=== PATIENT | female | born 1950 | race African-American/Black ===

== ENCOUNTER 2016-12-07 10:47 | Inpatient (IN) | payer OTHER ==
[~2016-12-07] VITALS: Ht 160 cm; Wt 99.7 kg
[~2016-12-07 10:47] MED LIST: ACCOLATE20 MG PO; ACETAMINOPHEN325 M1 PO; ADVAIR; ADVAIR 250/501 DISK IH; ADVAIR 500/501 DISK IH; ALBUTEROL SULF8.5 GM IH; ALBUTEROL2.5 MG/3 M IH; ALENDRONATE SOD10 MG PO; ALLEGRA180 MG PO; ALLOPURINOL100 MG PO; AMANTADINE100 M1 PO; APAP325 MG PO; ATIVAN2 MG/ML IV; ATROVENT 00.5 MG/2.5 IH; AUGMENTIN875 MG PO; BACTRIM,SEPTRA20 ML PO; BISAC-EVAC10 MG PR; BISACODYL SUPP10 MG RC; CALCIUM 500 +1 EAC1 PO; CALCIUM 500 +1 EAC4 PO; CALCIUM 600 +1 EAC7 GT; CARDIZEM CD240 MG PO; CEFEPIME HCL2 GM IM; CHLORASEPTIC S180 ML MM; CHRONULAC,CEPHU30 ML; CLARITIN10 M3; CLARITIN10 M3 PO; COLACE100 MG PO; CONSTULOSE10 GM/15 M PO; COREG3.125 MG PO; COUMADIN PO; COUMADIN,JANTO2.5 MG PO; CYTOTEC200 MCG PO; Chloraseptic Spray C MM; Colace PO; Combivent IH; Coreg PO; Coumadin,Jantoven PO; Cytotec PO; DELTASONE20 M1 PO; DELTASONE5 MG PO; DEXTROSE 50%50 ML IV; DIAZEPAM5 MG PO; DIFLUCAN200 MG/101 IV; DILAUDID1 MG/ML IV; DILAUDID4 MG PO; DULCOLAX10 MG PR; DUONEB 2.5-0.5 M3 ML IH; DUONEB3 ML IH; DURAGESIC12 MICROGR TD; Dulcolax PR; DuoNeb IH; EFFEXOR XR75 MG PO; ENULOSE10 GM/15 M PO; ERGOCALCIF50000 UNI1 PO; FENTANYL1 EAC1 TD; FLEET ENEMA-AD118 ML PR; FLONASE16 G1 BOTH NARES; FLORASTOR250 MG PO; FLORINEF ACETA0.1 MG PO; FLUDROCORTISON0.1 M1 PO; FLUDROCORTISON0.1 MG PO; FONDAPARIN2.5 MG/0.5 SC; FOSAMAX35 MG PO; FOSAMAX70 M1 GT; FUROSEMIDE20 MG PO; GABAPENTIN300 MG PO; GLUCAGEN1 MG IM/SC; GUAIFENESIN400 MG PO; HYDROCHLOROTHIA25 MG PO; HYDROCODONE-AP1 EAC6 PO; Heparin Sodium SC; IBUPROFEN600 MG PO; IMDUR30 MG PO; IMODIUM2 MG PO; IPRATR-ALBUTEROL3 ML; IPRATR-ALBUTEROL3 ML IH; K-DUR20 MEQ PO; K-Dur PO; KEFLEX250 MG PO; KEFLEX500 MG PO; KLOR-CON M2020 MEQ PO; LACTULOSE10 GM/151 PO; LASIX20 MG PO; LASIX40 MG PO; LASIX80 MG PO; LEVAQUIN500 MG PO; LEVAQUIN750 MG PO; LOPRESSOR50 MG PO; LOVENOX40 MG/0.4 PO; LOVENOX40 MG/0.4 SC; LYRICA50 MG PO; Lantus 3 ml Solostar SC; Lopressor GT; Lovenox SC; MAG DELAY64 M1 PO; MAG-OX400 M1 PO; MEGACE400 MG/10 PO; MEROPENEM500 MG IV; METOPROLOL TART25 MG PO; MIRALAX17 GM PO; MISOPROSTOL200 MCG PO; MITRAZOL POWDER30 GM TP; MONTELUKAST SOD10 MG PO; MUCINEX600 MG PO; MULTIPLE VITAM1 EACH PO; MULTIVITAMIN1 EAC1 PO; MULTIVITAMIN1 EAC2 PO; MYLICON,MYLANTA80 MG PO; MYSOLINE50 M1 PO; MYSOLINE50 MG PO; Mag-Ox GT; NEURONTIN100 MG PO; NEUTRA-PHOS,1 PACKET PO; NIACIN100 MG PO; NITROSTAT,NITR0.4 M1 SL; NOVOLOG PE100 UNITS/ SC; NOVOLOG100 UNIT/3 SQ; Norco 5/325 PO; Normal Saline,NaCl 0 IV; OMEPRAZOLE20 M3 PO; OMEPRAZOLE20 MG PO; OMEPRAZOLE40 M1 PO; OXYCODONE5 MG PO; OXYCONTIN20 MG PO; PERCOCET 5-3251 EACH PO; POTASSIUM CHLORIDE PO; PREDNISONE PO; PREDNISONE10 MG PO; PREDNISONE5 M2 PO; PREDNISONE5 MG PO; PREVACID SOLUTA30 MG GT; PRILOSEC20 MG PO; PRIMIDONE50 MG PO; PROBIOTIC1 EAC1 PO; PROMETHAZINE HC25 M1 PO; PROVENTIL,2.5 MG/3 M IH; Protonix IV; Protonix PO; Questran PO; REGLAN5 MG PO; RITALIN10 MG PO; RITALIN20 MG PO; ROBITUSSIN LON118 ML PO; Remove Lidoderm Patc TD; Rocephin IM; SALINE FLUSH 5 M5 ML IV; SENNA PLUS TAB1 EACH PO; SENNA S TABLET1 EACH PO; SEROQUEL50 MG PO; SIMETHICONE80 MG PO; SIMVASTATIN40 M1 PO; SINGULAIR10 MG PO; SKELAXIN800 MG PO; SPIRIVA RESPIMAT4 G1 IH; SPIRIVA1 INHALATI IH; THEOCHRON200 MG PO; THERAGRAN1 TABLET PO; TPN; TRAMADOL HCL50 MG PO; TYLENOL EXTRA500 MG PO; TYLENOL REGULA325 MG PO; TYLENOL650 MG PR; TYLENOL650 MG/20. GT; Tums,OsCal PO; ULTRAM50 MG PO; URECHOLINE10 M1 PO; Ultram PO; VANCOMYCIN1500 MG/25 IV; VENTOLIN17 GM IH; VITAMIN D1000 INTUN PO; VITAMIN D5000 INTUN; VITAMIN D50000 UNI1 PO; VITAMIN D50000 UNI2 PO; WELLBUTRIN75 MG PO; XIFAXAN200 MG PO; Xifaxan PO; ZANTAC IV; ZESTRIL,PRINIVI40 M1 PO; ZITHROMAX250 MG PO; ZOCOR40 MG PO; ZOFRAN4 MG/2 ML IV; ZOLOFT100 MG PO; ZOLOFT20 MG/ML GT; ZOSYN2.25 GM/50 IV; ZOSYN3.375 GM/5 IV; Zestril,Prinivil GT; [UNRECOGNIZED DRUG - CODE] TD; [UNRECOGNIZED DRUG - OTHER]; [UNRECOGNIZED DRUG - OTHER] PO
[2016-12-07 12:25] LABS: ADD MIUA? YES; BILIRUBIN NEGATIVE; BLOOD SMALL; COLOR AMBER ((YELLOW)); GLUCOSE (STRIP) NEGATIVE; KETONES 5; LEUKOCYTES LARGE; NITRITE NEGATIVE; PROTEIN (STRIP) 30; SPECIFIC GRAVITY 1.017 (1.000-1.030)
[2016-12-07 12:43] LABS: EOSINOPHIL (%) 0.2 % (0-5); HEMATOCRIT 34.5 % (36.0-46.0); IMMATURE GRANULOCYTE (%) 3.3 % (0.0-0.7); IMMATURE GRANULOCYTE COUNT 0.4 K/uL; INSTRUMENT ABS NEUTROPHIL CT 10.2 K/uL; LYMPHOCYTE COUNT 1.8 K/uL (1.0-2.8); MCH 28.7 PG (29.0-34.0); MCHC 35.1 G/DL (30.0-36.0); MCV 81.8 FL (83-99); MEAN PLAT.VOLUME 10.8 uM^3 (9.5-12.4); MONOCYTE (%) 6.8 % (3-12); MONOCYTE COUNT 0.9 K/uL (0-0.8); NEUTROPHIL (%) 75.8 % (45-76); NEUTROPHIL COUNT 10.2 K/uL (1.8-6.4); PLATELET COUNT 308 K/uL (156-360); RBC DIS.WIDTH-CV 15.3 % (11.8-14.6); RBC DIS.WIDTH-SD 43.9 % (39-53); RED BLOOD COUNT 4.22 M/uL (3.80-5.20); WHITE BLOOD COUNT 13.5 K/uL (4.1-10.2)
[2016-12-07 12:57] LABS: RED BLOOD CELLS 0-5 /HPF (0-5)
[2016-12-07 12:58] LABS: BACTERIA 3+ /HPF; EPITHELIAL CELLS 2+ /HPF; MUCUS 1+ /LPF; UCUL ADDED? YES
[2016-12-07 13:00] LABS: OTHER YEAST W/HYPHAE 1+
[2016-12-07 13:25] LABS: CHLORIDE 99 mEq/L (99-109); POTASSIUM 3.4 mEq/L (3.7-5.4); SODIUM 132 mEq/L (136-147)
[2016-12-07 13:27] LABS: GLUCOSE 113 mg/dL (70-99)
[2016-12-07 13:28] LABS: ANION GAP 12 MEQ/L (2-14)
[2016-12-07 13:31] LABS: GFR ESTIMATE (CALCULATED) > 59 mL/min/
[2016-12-07 13:32] LABS: UREA NITROGEN (BUN) 23 mg/dL (9-23)
[2016-12-07 13:39] LABS: TROP-I INTERPRETATION NEGATIVE; TROPONIN-I 0.05 ng/mL (0.0-0.30)
[2016-12-07] MEDS ORDERED: LASIX40 MG PO (13:47)
[2016-12-07] MEDS ORDERED: ERGOCALCIF50000 UNIT PO (13:50)
[2016-12-07] MEDS ORDERED: BUDESONIDE0.5 MG/2 M IH (13:51)
[2016-12-07] MEDS ORDERED: MUCINEX600 MG PO (13:51)
[2016-12-07] MEDS ORDERED: PROBIOTIC1 EAC6 PO (13:52)
[2016-12-07] MEDS ORDERED: SENNA8.6 MG PO (13:53)
[2016-12-07] MEDS ORDERED: TYLENOL EXTRA500 MG PO (13:53)
[2016-12-07] MEDS ORDERED: GABAPENTIN100 MG PO (13:54)
[2016-12-07] MEDS ORDERED: KEFLEX500 MG PO (13:56)
[2016-12-07 14:02] LABS: INTER. NORMALIZED RATIO 1.7; PROTHROMBIN TIME 17.1 (9.2-11.2); PTT 24.9 (25-32)
[2016-12-07] MEDS ORDERED: LEVAQUIN500 MG PO (14:08)
[2016-12-07 22:52] VITALS: BP 121/66
[2016-12-08 03:52] VITALS: BP 133/69
[2016-12-08 06:58] LABS: POINT-OF-CARE METER ID UU14162508
[2016-12-08 07:29] LABS: ALKALINE PHOSPHATASE 78 IU/L (3-129); ANION GAP 10 MEQ/L (2-14); CHLORIDE 101 MEQ/L (99-109); GFR ESTIMATE (CALCULATED) > 59 mL/min/; POTASSIUM 3.1 MEQ/L (3.7-5.4); SAMPLE HEMOLYSIS CHECK 0; SAMPLE ICTERIC CHECK 0; SAMPLE LIPEMIA CHECK 0; SODIUM 137 MEQ/L (136-147); TOTAL BILIRUBIN 0.6 MG/DL (0.0-1.0); UREA NITROGEN (BUN) 19 mg/dL (9-23)
[2016-12-08 07:33] LABS: GLUCOSE 74 mg/dL (70-99)
[2016-12-08 07:48] LABS: MCH 28.2 PG (29.0-34.0); MCHC 33.9 G/DL (30.0-36.0); MCV 83.3 FL (83-99); RBC DIS.WIDTH-CV 15.9 % (11.8-14.6); RBC DIS.WIDTH-SD 46.4 % (39-53); RED BLOOD COUNT 3.72 M/uL (3.80-5.20); WHITE BLOOD COUNT 12.4 K/uL (4.1-10.2)
[2016-12-08 09:08] LABS: MEAN PLAT.VOLUME 11.4 uM^3 (9.5-12.4); PLAT.SUFFICIENCY ADEQUATE; PLATELET COUNT 210 K/uL (156-360)
[2016-12-08 09:19] LABS: INTER. NORMALIZED RATIO 1.7; PROTHROMBIN TIME 17.4 (9.2-11.2)
[2016-12-08 12:00] VITALS: BP 124/79
[2016-12-08 22:07] VITALS: BP 90/60
[2016-12-08 23:34] VITALS: BP 104/56
[2016-12-09 03:48] VITALS: BP 127/67
[2016-12-09 06:48] LABS: RED BLOOD COUNT 3.48 M/uL (3.80-5.20)
[2016-12-09 06:49] LABS: HEMATOCRIT 28.6 % (36.0-46.0); MCH 28.7 PG (29.0-34.0); MCV 82.2 FL (83-99); RBC DIS.WIDTH-CV 15.9 % (11.8-14.6); RBC DIS.WIDTH-SD 46.4 % (39-53)
[2016-12-09 06:59] LABS: INTER. NORMALIZED RATIO 1.8; PROTHROMBIN TIME 18.5 (9.2-11.2)
[2016-12-09 07:00] VITALS: BP 114/60
[2016-12-09 07:12] LABS: ANION GAP 8 MEQ/L (2-14); CHLORIDE 101 MEQ/L (99-109); GFR ESTIMATE (CALCULATED) > 59 mL/min/; GLUCOSE 82 mg/dL (70-99); POTASSIUM 3.2 MEQ/L (3.7-5.4); SAMPLE HEMOLYSIS CHECK 0; SAMPLE ICTERIC CHECK 0; SAMPLE LIPEMIA CHECK 0; SODIUM 134 MEQ/L (136-147); UREA NITROGEN (BUN) 16 mg/dL (9-23)
[2016-12-09 07:41] LABS: MEAN PLAT.VOLUME 10.3 uM^3 (9.5-12.4); PLAT.SUFFICIENCY ADEQUATE; PLATELET COUNT 247 K/uL (156-360)
[2016-12-09 08:26] LABS: MAGNESIUM 1.3 mg/dl (1.3-2.7)
[2016-12-09 12:00] VITALS: BP 120/62
[2016-12-09 16:23] VITALS: BP 116/68
[2016-12-09 19:12] VITALS: BP 112/59
[2016-12-09 20:10] VITALS: BP 94/50
[2016-12-10] VITALS (7 sets, daily range): BP systolic 95–133; BP diastolic 53–76
[2016-12-10 08:54] LABS: INTER. NORMALIZED RATIO 1.7; PROTHROMBIN TIME 17.7 (9.2-11.2); PTT 26.4 (25-32)
[2016-12-10 09:11] LABS: ANION GAP 11 MEQ/L (2-14); CHLORIDE 101 MEQ/L (99-109); GFR ESTIMATE (CALCULATED) > 59 mL/min/; GLUCOSE 94 mg/dL (70-99); POTASSIUM 3.6 MEQ/L (3.7-5.4); SAMPLE HEMOLYSIS CHECK 0; SAMPLE ICTERIC CHECK 0; SAMPLE LIPEMIA CHECK 0; SODIUM 131 MEQ/L (136-147); UREA NITROGEN (BUN) 13 mg/dL (9-23)
[2016-12-10 09:17] LABS: 6-HOUR TOBRAMYCIN 6.2 UG/ML; MAGNESIUM 2.1 mg/dl (1.3-2.7)
[2016-12-10 09:45] LABS: HEMATOCRIT 29.2 % (36.0-46.0); MCHC 35.3 G/DL (30.0-36.0); MCV 82.3 FL (83-99); MEAN PLAT.VOLUME 11.1 uM^3 (9.5-12.4); PLATELET COUNT 232 K/uL (156-360); RBC DIS.WIDTH-CV 15.9 % (11.8-14.6); RBC DIS.WIDTH-SD 46.7 % (39-53); RED BLOOD COUNT 3.55 M/uL (3.80-5.20); WHITE BLOOD COUNT 13.9 K/uL (4.1-10.2)
[2016-12-10 21:32] LABS: POINT-OF-CARE METER ID UU14162508
[2016-12-11 03:15] VITALS: BP 129/68
[2016-12-11 06:30] LABS: POINT-OF-CARE METER ID UU14162508
[2016-12-11 07:03] LABS: HEMATOCRIT 30.1 % (36.0-46.0); MCH 28.9 PG (29.0-34.0); MCHC 35.5 G/DL (30.0-36.0); MCV 81.4 FL (83-99); MEAN PLAT.VOLUME 10.7 uM^3 (9.5-12.4); NRBC (%) 0.2 /100 WBC (0-0); PLATELET COUNT 273 K/uL (156-360); RBC DIS.WIDTH-CV 16.1 % (11.8-14.6); RBC DIS.WIDTH-SD 45.8 % (39-53); WHITE BLOOD COUNT 13.1 K/uL (4.1-10.2)
[2016-12-11 07:11] LABS: INTER. NORMALIZED RATIO 1.7; PROTHROMBIN TIME 17.1 (9.2-11.2); PTT 23.1 (25-32)
[2016-12-11 08:03] LABS: CHLORIDE 102 mEq/L (99-109); POTASSIUM 3.8 mEq/L (3.7-5.4); SODIUM 133 mEq/L (136-147)
[2016-12-11 08:04] LABS: MAGNESIUM 1.8 mg/dL (1.3-2.7)
[2016-12-11 08:05] LABS: GLUCOSE 96 mg/dL (70-99)
[2016-12-11 08:07] LABS: ANION GAP 11 MEQ/L (2-14)
[2016-12-11 08:09] LABS: GFR ESTIMATE (CALCULATED) > 59 mL/min/
[2016-12-11 08:10] LABS: UREA NITROGEN (BUN) 15 mg/dL (9-23)
[2016-12-11 08:22] VITALS: BP 102/62
[2016-12-11 11:14] VITALS: BP 119/52
[2016-12-11 16:19] VITALS: BP 130/66
[2016-12-11 20:30] VITALS: BP 110/60
[2016-12-11 23:03] VITALS: BP 123/69
[2016-12-12 04:22] VITALS: BP 119/60
[2016-12-12 07:00] VITALS: BP 109/55
[2016-12-12 08:22] LABS: HEMATOCRIT 29.2 % (36.0-46.0); MCH 28.9 PG (29.0-34.0); MCHC 35.3 G/DL (30.0-36.0); RBC DIS.WIDTH-CV 16.2 % (11.8-14.6); RBC DIS.WIDTH-SD 47.2 % (39-53); RED BLOOD COUNT 3.56 M/uL (3.80-5.20)
[2016-12-12 08:50] LABS: MEAN PLAT.VOLUME 10.2 uM^3 (9.5-12.4); PLAT.SUFFICIENCY ADEQUATE; PLATELET COUNT 247 K/uL (156-360)
[2016-12-12 08:51] LABS: ANION GAP 10 MEQ/L (2-14); CHLORIDE 102 MEQ/L (99-109); GFR ESTIMATE (CALCULATED) > 59 mL/min/; GLUCOSE 91 mg/dL (70-99); POTASSIUM 3.6 MEQ/L (3.7-5.4); SAMPLE HEMOLYSIS CHECK 0; SAMPLE ICTERIC CHECK 0; SAMPLE LIPEMIA CHECK 0; SODIUM 135 MEQ/L (136-147); UREA NITROGEN (BUN) 18 mg/dL (9-23)
[2016-12-12 11:35] VITALS: BP 108/56
[2016-12-12 15:25] VITALS: BP 111/57
[2016-12-12 19:45] VITALS: BP 123/60
[2016-12-12 23:16] VITALS: BP 122/63
[2016-12-13 03:33] VITALS: BP 129/69
[2016-12-13 06:20] LABS: MCH 29.2 PG (29.0-34.0); MCHC 35.9 G/DL (30.0-36.0); MCV 81.5 FL (83-99); MEAN PLAT.VOLUME 10.5 uM^3 (9.5-12.4); NRBC (%) 0.3 /100 WBC (0-0); PLATELET COUNT 269 K/uL (156-360); RBC DIS.WIDTH-SD 46.7 % (39-53); RED BLOOD COUNT 3.56 M/uL (3.80-5.20); WHITE BLOOD COUNT 11.8 K/uL (4.1-10.2)
[2016-12-13 06:38] LABS: ANION GAP 9 MEQ/L (2-14); CHLORIDE 104 MEQ/L (99-109); GFR ESTIMATE (CALCULATED) > 59 mL/min/; GLUCOSE 106 mg/dL (70-99); SAMPLE HEMOLYSIS CHECK 0; SAMPLE ICTERIC CHECK 0; SAMPLE LIPEMIA CHECK 0; SODIUM 137 MEQ/L (136-147); UREA NITROGEN (BUN) 20 mg/dL (9-23)
[2016-12-13 06:45] LABS: POTASSIUM 4.4 MEQ/L (3.7-5.4)
[2016-12-13 07:15] VITALS: BP 128/68
[2016-12-13 12:19] VITALS: BP 124/66
[2016-12-13 15:49] VITALS: BP 134/70
[2016-12-13 18:36] VITALS: BP 117/72
[2016-12-14 00:07] VITALS: BP 122/52
[2016-12-14 04:05] VITALS: BP 120/60
[2016-12-14 06:45] VITALS: BP 130/58
[2016-12-14 07:09] LABS: HEMATOCRIT 29.2 % (36.0-46.0); MCH 28.9 PG (29.0-34.0); MCHC 35.3 G/DL (30.0-36.0); MCV 81.8 FL (83-99); MEAN PLAT.VOLUME 10.9 uM^3 (9.5-12.4); NRBC (%) 0.2 /100 WBC (0-0); PLATELET COUNT 250 K/uL (156-360); RBC DIS.WIDTH-CV 16.5 % (11.8-14.6); RBC DIS.WIDTH-SD 47.7 % (39-53); RED BLOOD COUNT 3.57 M/uL (3.80-5.20)
[2016-12-14 07:39] LABS: ANION GAP 9 MEQ/L (2-14); CHLORIDE 106 MEQ/L (99-109); GFR ESTIMATE (CALCULATED) > 59 mL/min/; GLUCOSE 74 mg/dL (70-99); SAMPLE HEMOLYSIS CHECK 0; SAMPLE ICTERIC CHECK 0; SAMPLE LIPEMIA CHECK 0; SODIUM 138 MEQ/L (136-147); UREA NITROGEN (BUN) 21 mg/dL (9-23)
[2016-12-14] MEDS ORDERED: NEBCIN40 MG/ML IV ×3 (08:18→10:06)
[2016-12-14] MEDS ORDERED: FLUCONAZOLE100 MG PO (08:18)
[2016-12-14 12:20] VITALS: BP 132/60
== END 2016-12-14 14:20 | DRG 871 ==
LOC: EME → EDBD 10:47 → EDOF 20:40 → 2EAST 20:40 → EDOF 20:52 → 2EAST 22:42
PROVIDERS: Emergency Medicine; Family Medicine; Hospitalist; Internal Medicine; Nurse Practitioner Family; Student in an Organized Health Care Education/Training Program
DX: A41.9 Sepsis, unspecified organism (principal); J18.9 Pneumonia, unspecified organism; E87.1 Hypo-osmolality and hyponatremia; N39.0 Urinary tract infection, site not specified; E66.01 Morbid (severe) obesity due to excess calories; D68.9 Coagulation defect, unspecified; E11.22 Type 2 diabetes mellitus with diabetic chronic kidney disease; Z99.81 Dependence on supplemental oxygen; Z68.38 Body mass index [BMI] 38.0-38.9, adult; D72.829 Elevated white blood cell count, unspecified; K52.9 Noninfective gastroenteritis and colitis, unspecified; E87.6 Hypokalemia; J44.9 Chronic obstructive pulmonary disease, unspecified; B96.20 Unspecified Escherichia coli [E. coli] as the cause of diseases classified elsewhere; R91.1 Solitary pulmonary nodule; B95.8 Unspecified staphylococcus as the cause of diseases classified elsewhere; E78.5 Hyperlipidemia, unspecified; I12.9 Hypertensive chronic kidney disease with stage 1 through stage 4 chronic kidney disease, or unspecified chronic kidney disease; N18.9 Chronic kidney disease, unspecified; M81.0 Age-related osteoporosis without current pathological fracture; R25.1 Tremor, unspecified; M10.9 Gout, unspecified; R32 Unspecified urinary incontinence; R62.7 Adult failure to thrive; K76.0 Fatty (change of) liver, not elsewhere classified; M48.00 Spinal stenosis, site unspecified; Z99.3 Dependence on wheelchair; Z90.49 Acquired absence of other specified parts of digestive tract; Z86.73 Personal history of transient ischemic attack (TIA), and cerebral infarction without residual deficits
CPT/HCPCS: 71010; 71260; 74020; 74177; 74230; 80048; 80053; 80200; 81003; 82948; 83605; 83735; 83880; 84484; 85025; 85027; 85610; 85730; 87040; 87077; 87086; 87186; 87449; 87801; 92610 GN; 92611 GN; 93005; 94640; 94640 76; 94667; 94668; 94760; 94799; 99202; 99281; 99285; J0692; J0696; J1650; J1956; J2405; J2930; J3260; J3475; J7030; J7040; J7050; J7512; S0030

== ENCOUNTER 2016-12-31 11:51 | Inpatient (IN) | payer OTHER ==
[2016-12-31] VITALS (15 sets, daily range): BP systolic 77–146; BP diastolic 52–97
[~2016-12-31] VITALS: Ht 170.2 cm; Wt 126.5 kg
[~2016-12-31 11:51] MED LIST changes: +BUDESONIDE0.5 MG/2 M IH; +ERGOCALCIF50000 UNIT PO; +FLUCONAZOLE100 MG PO; +GABAPENTIN100 MG PO; +NEBCIN40 MG/ML IV; +PROBIOTIC1 EAC6 PO; +SENNA8.6 MG PO
[2016-12-31 12:53] LABS: EOSINOPHIL (%) 0.5 % (0-5); HEMATOCRIT 26.8 % (36.0-46.0); IMMATURE GRANULOCYTE (%) 2.6 % (0.0-0.7); IMMATURE GRANULOCYTE COUNT 0.2 K/uL; INSTRUMENT ABS NEUTROPHIL CT 5.5 K/uL; LYMPHOCYTE COUNT 1.6 K/uL (1.0-2.8); MCH 28.8 PG (29.0-34.0); MCHC 35.4 G/DL (30.0-36.0); MCV 81.2 FL (83-99); MONOCYTE (%) 8.1 % (3-12); MONOCYTE COUNT 0.6 K/uL (0-0.8); NEUTROPHIL (%) 68.7 % (45-76); NEUTROPHIL COUNT 5.5 K/uL (1.8-6.4); PLATELET COUNT 310 K/uL (156-360); RBC DIS.WIDTH-CV 16.3 % (11.8-14.6); RBC DIS.WIDTH-SD 47.3 % (39-53)
[2016-12-31 14:03] LABS: ADD MIUA? YES; BILIRUBIN NEGATIVE; BLOOD NEGATIVE; COLOR YELLOW ((YELLOW)); GLUCOSE (STRIP) NEGATIVE; KETONES NEGATIVE; LEUKOCYTES NEGATIVE; NITRITE NEGATIVE; PROTEIN (STRIP) NEGATIVE; SPECIFIC GRAVITY 1.016 (1.000-1.030); UROBILINOGEN 0.2 MG/DL (0.2-1.0)
[2016-12-31] MEDS ORDERED: MULTIPLE VITAM1 EACH PO (14:14)
[2016-12-31 14:16] LABS: CHLORIDE 106 mEq/L (99-109); POTASSIUM 3.5 mEq/L (3.7-5.4); SODIUM 136 mEq/L (136-147)
[2016-12-31] MEDS ORDERED: POTASSIUM20 MEQ/11 PO (14:16)
[2016-12-31 14:19] LABS: GLUCOSE 113 mg/dL (70-99)
[2016-12-31 14:20] LABS: ANION GAP 9 MEQ/L (2-14)
[2016-12-31 14:21] LABS: TOTAL BILIRUBIN 0.8 mg/dL (0.0-1.0)
[2016-12-31 14:21] LABS: BACTERIA 2+ /HPF; EPITHELIAL CELLS 1+ /HPF; MUCUS NONE SEEN /LPF; RED BLOOD CELLS NONE SEEN /HPF (0-5); UCUL ADDED? NO; WHITE BLOOD CELLS 0-5 /HPF (0-5)
[2016-12-31 14:22] LABS: ALKALINE PHOSPHATASE 115 IU/L (3-129); GFR ESTIMATE (CALCULATED) 58 mL/min/
[2016-12-31 14:23] LABS: UREA NITROGEN (BUN) 35 mg/dL (9-23)
[2016-12-31 14:30] LABS: TROP-I INTERPRETATION NEGATIVE; TROPONIN-I < 0.01 ng/mL (0.0-0.30)
[2016-12-31 18:24] LABS: METH RESISTANT S AUREUS PCR POSITIVE (NEGATIVE)
[2016-12-31 18:27] LABS: PROBE CHECK PASS
[2016-12-31 21:01] LABS: MAGNESIUM 1.3 mg/dL (1.3-2.7)
[2016-12-31 23:08] LABS: UR CREATININE CONCENTRATION 103.8 MG/DL
[2017-01-01] VITALS (25 sets, daily range): BP systolic 70–118; BP diastolic 42–71
[2017-01-01 00:46] LABS: CREATINE KINASE 42 IU/L (1-294); TOTAL CK 42 IU/L (1-294)
[2017-01-01 00:47] LABS: TROP-I INTERPRETATION INDETERMINATE; TROPONIN-I 0.49 ng/mL (0.0-0.30)
[2017-01-01 00:52] LABS: CK-MB 3.7 ng/mL (0.0-4.9)
[2017-01-01 01:34] LABS: POINT-OF-CARE METER ID UU13113731
[2017-01-01 06:18] LABS: POINT-OF-CARE METER ID UU14162636; POINT-OF-CARE USER ID 609231305
[2017-01-01 06:52] LABS: HEMATOCRIT 24.5 % (36.0-46.0); MCH 29.2 PG (29.0-34.0); MCHC 35.1 G/DL (30.0-36.0); MCV 83.1 FL (83-99); RBC DIS.WIDTH-SD 50.3 % (39-53); RED BLOOD COUNT 2.95 M/uL (3.80-5.20); WHITE BLOOD COUNT 11.5 K/uL (4.1-10.2)
[2017-01-01 07:06] LABS: TROP-I INTERPRETATION INDETERMINATE; TROPONIN-I 0.47 ng/mL (0.0-0.30)
[2017-01-01 08:02] LABS: ANION GAP 11 MEQ/L (2-14); CHLORIDE 108 MEQ/L (99-109); CREATINE KINASE 35 IU/L (1-294); GFR ESTIMATE (CALCULATED) 58 mL/min/; GLUCOSE 136 mg/dL (70-99); MAGNESIUM 1.5 mg/dl (1.3-2.7); POTASSIUM 3.6 MEQ/L (3.7-5.4); SAMPLE HEMOLYSIS CHECK 0; SAMPLE ICTERIC CHECK 0; SAMPLE LIPEMIA CHECK 0; SODIUM 137 MEQ/L (136-147); TOTAL CK 35 IU/L (1-294); UREA NITROGEN (BUN) 32 mg/dL (9-23); VANCOMYCIN, TROUGH 12.3 MCG/ML (10-20)
[2017-01-01 08:06] LABS: INTERNAL CONTROL VALID? YES
[2017-01-01 08:29] LABS: CK-MB 4.7 ng/mL (0.0-4.9)
[2017-01-01 11:06] LABS: EOSINOPHIL (%) 0 % (0-5); HEMATOLOGY COMMENT 1 SMEAR COMPATIBLE; IMMATURE GRANULOCYTE (%) 3.1 % (0.0-0.7); IMMATURE GRANULOCYTE COUNT 0.4 K/uL; INSTRUMENT ABS NEUTROPHIL CT 9.6 K/uL; LYMPHOCYTE COUNT 1.1 K/uL (1.0-2.8); MEAN PLAT.VOLUME 10.8 uM^3 (9.5-12.4); MONOCYTE (%) 2.6 % (3-12); MONOCYTE COUNT 0.3 K/uL (0-0.8); NEUTROPHIL (%) 84.2 % (45-76); NEUTROPHIL COUNT 9.6 K/uL (1.8-6.4); PLAT.SUFFICIENCY ADEQUATE; PLATELET COUNT 250 K/uL (156-360)
[2017-01-01 11:45] LABS: POINT-OF-CARE METER ID UU14162636
[2017-01-01 12:13] LABS: TROP-I INTERPRETATION INDETERMINATE; TROPONIN-I 0.36 ng/mL (0.0-0.30)
[2017-01-01 13:03] LABS: CREATINE KINASE 40 IU/L (1-294); TOTAL CK 40 IU/L (1-294)
[2017-01-01 13:09] LABS: CK-MB 4.3 ng/mL (0.0-4.9)
[2017-01-01 17:29] LABS: POINT-OF-CARE METER ID UU14174217
[2017-01-01 18:49] LABS: CREATINE KINASE 26 IU/L (1-294); TOTAL CK 26 IU/L (1-294)
[2017-01-01 18:53] LABS: TROP-I INTERPRETATION NEGATIVE; TROPONIN-I 0.22 ng/mL (0.0-0.30)
[2017-01-01 19:06] LABS: CK-MB 2.8 ng/mL (0.0-4.9)
[2017-01-02] VITALS (25 sets, daily range): BP systolic 78–109; BP diastolic 46–65
[2017-01-02 00:25] LABS: POINT-OF-CARE METER ID UU14174217
[2017-01-02 02:57] LABS: ADD MIUA? YES; BILIRUBIN NEGATIVE; BLOOD NEGATIVE; COLOR YELLOW ((YELLOW)); GLUCOSE (STRIP) NEGATIVE; KETONES NEGATIVE; LEUKOCYTES NEGATIVE; NITRITE NEGATIVE; PROTEIN (STRIP) 30; SPECIFIC GRAVITY 1.017 (1.000-1.030); UROBILINOGEN 0.2 MG/DL (0.2-1.0)
[2017-01-02 03:05] LABS: BACTERIA 1+ /HPF; EPITHELIAL CELLS 1+ /HPF; HYALINE CASTS TNTC /LPF; MUCUS 1+ /LPF; RED BLOOD CELLS 30-40 /HPF (0-5); WHITE BLOOD CELLS 20-30 /HPF (0-5)
[2017-01-02 07:13] LABS: HEMATOCRIT 22.8 % (36.0-46.0); MCH 29.3 PG (29.0-34.0); MCHC 35.5 G/DL (30.0-36.0); MCV 82.6 FL (83-99); RBC DIS.WIDTH-CV 16.9 % (11.8-14.6); RED BLOOD COUNT 2.76 M/uL (3.80-5.20); WHITE BLOOD COUNT 12.9 K/uL (4.1-10.2)
[2017-01-02 07:39] LABS: ANION GAP 12 MEQ/L (2-14); CHLORIDE 111 MEQ/L (99-109); GFR ESTIMATE (CALCULATED) 48 mL/min/; MAGNESIUM 1.6 mg/dl (1.3-2.7); POTASSIUM 4.2 MEQ/L (3.7-5.4); SAMPLE HEMOLYSIS CHECK 0; SAMPLE ICTERIC CHECK 0; SAMPLE LIPEMIA CHECK 0; SODIUM 139 MEQ/L (136-147); UREA NITROGEN (BUN) 31 mg/dL (9-23)
[2017-01-02 07:41] LABS: GLUCOSE 88 mg/dL (70-99)
[2017-01-02 10:33] LABS: IRON 59 MCG/DL (35-150); VANCOMYCIN, TROUGH 16.1 MCG/ML (10-20)
[2017-01-02 11:09] LABS: EOSINOPHIL (%) 0.2 % (0-5); IMMATURE GRANULOCYTE (%) 4.5 % (0.0-0.7); IMMATURE GRANULOCYTE COUNT 0.6 K/uL; INSTRUMENT ABS NEUTROPHIL CT 10.5 K/uL; LYMPHOCYTE COUNT 0.8 K/uL (1.0-2.8); MEAN PLAT.VOLUME 11.3 uM^3 (9.5-12.4); MONOCYTE (%) 7.5 % (3-12); NEUTROPHIL (%) 81.6 % (45-76); NEUTROPHIL COUNT 10.5 K/uL (1.8-6.4)
[2017-01-02 11:22] LABS: PLATELET COUNT 158 K/uL (156-360)
[2017-01-02 11:28] LABS: FERRITIN 1382 NG/ML (10-291)
[2017-01-02 12:29] LABS: POINT-OF-CARE METER ID UU13113731
[2017-01-02 14:33] LABS: POINT-OF-CARE METER ID UU13113731
[2017-01-02 17:59] LABS: POINT-OF-CARE METER ID UU13113731
[2017-01-03] VITALS (30 sets, daily range): BP systolic 75–151; BP diastolic 37–114
[2017-01-03 08:00] LABS: ANION GAP 13 MEQ/L (2-14); CHLORIDE 112 MEQ/L (99-109); GFR ESTIMATE (CALCULATED) 58 mL/min/; GLUCOSE 76 mg/dL (70-99); SAMPLE HEMOLYSIS CHECK 0; SAMPLE ICTERIC CHECK 0; SAMPLE LIPEMIA CHECK 0; SODIUM 141 MEQ/L (136-147); UREA NITROGEN (BUN) 26 mg/dL (9-23)
[2017-01-03 08:15] LABS: EOSINOPHIL (%) 1.2 % (0-5); EOSINOPHIL COUNT 0.1 K/uL (0-0.3); HEMATOCRIT 22.4 % (36.0-46.0); IMMATURE GRANULOCYTE COUNT 0.6 K/uL; INSTRUMENT ABS NEUTROPHIL CT 8.7 K/uL; LYMPHOCYTE COUNT 0.8 K/uL (1.0-2.8); MCH 29.5 PG (29.0-34.0); MCHC 34.8 G/DL (30.0-36.0); MCV 84.8 FL (83-99); MEAN PLAT.VOLUME 11.5 uM^3 (9.5-12.4); MONOCYTE (%) 7.3 % (3-12); MONOCYTE COUNT 0.8 K/uL (0-0.8); NEUTROPHIL (%) 79.3 % (45-76); NEUTROPHIL COUNT 8.7 K/uL (1.8-6.4); PLATELET COUNT 174 K/uL (156-360); RBC DIS.WIDTH-CV 18.4 % (11.8-14.6); RBC DIS.WIDTH-SD 55.8 % (39-53); RED BLOOD COUNT 2.64 M/uL (3.80-5.20); WHITE BLOOD COUNT 10.9 K/uL (4.1-10.2)
[2017-01-03 12:24] LABS: POINT-OF-CARE METER ID UU14174217
[2017-01-03 15:05] LABS: ALKALINE PHOSPHATASE 66 IU/L (3-129); DIRECT BILIRUBIN 0.2 mg/dL (0.0-0.3); TOTAL BILIRUBIN 0.7 MG/DL (0.0-1.0); VANCOMYCIN, TROUGH 19.4 MCG/ML (10-20)
[2017-01-03 15:07] LABS: UR CREATININE CONCENTRATION 78.1 MG/DL
[2017-01-03 18:24] LABS: POINT-OF-CARE METER ID UU14174217
[2017-01-04] VITALS (18 sets, daily range): BP systolic 0–140; BP diastolic 0–85
[2017-01-04 05:41] LABS: HEMATOCRIT 22.8 % (36.0-46.0); MCH 29.5 PG (29.0-34.0); MEAN PLAT.VOLUME 10.7 uM^3 (9.5-12.4); PLATELET COUNT 169 K/uL (156-360); RBC DIS.WIDTH-CV 16.8 % (11.8-14.6); RBC DIS.WIDTH-SD 49.5 % (39-53); RED BLOOD COUNT 2.78 M/uL (3.80-5.20); WHITE BLOOD COUNT 7.7 K/uL (4.1-10.2)
[2017-01-04 06:31] LABS: ANION GAP 10 MEQ/L (2-14); CHLORIDE 108 MEQ/L (99-109); GFR ESTIMATE (CALCULATED) > 59 mL/min/; SAMPLE HEMOLYSIS CHECK 0; SAMPLE ICTERIC CHECK 0; SAMPLE LIPEMIA CHECK 0; SODIUM 138 MEQ/L (136-147); UREA NITROGEN (BUN) 20 mg/dL (9-23)
[2017-01-04 06:32] LABS: GLUCOSE 118 mg/dL (70-99); MAGNESIUM 1.6 mg/dl (1.3-2.7); POTASSIUM 3.1 MEQ/L (3.7-5.4)
[2017-01-04 06:58] LABS: ABS NEUTROPHIL COUNT 7.4; ANISOCYTOSIS 2+; BAND NEUTROPHILS 1.8 % (0-8.0); BASOPHILS 0.9 %; BURR CELLS 2+; EOSINOPHIL ABS CT 0.1; EOSINOPHILS 0.9 % (0-5.0); INSTRUMENT ABS NEUTROPHIL CT 6.1 K/uL; LYMPHOCYTES 0.9 % (15.0-45.0); MACROCYTES 2+; PLAT.SUFFICIENCY ADEQUATE; POIKILOCYTOSIS 3+; SEG.NEUTROPHILS 94.6 % (46.0-76.0); TARGET CELLS 2+
[2017-01-04 13:21] LABS: POINT-OF-CARE METER ID UU14174217
[2017-01-04 15:47] LABS: BASE EXCESS 0.4 mEq/L (-3 to +3); BICARBONATE 24.3 mEq/L (22-26); CARBOXY HGB 0.8 % (0-5); METHEMOGLOBIN 1.7 % (0-1.5); PCO2 35 mm Hg (35-45); PO2 111 mm Hg (80-100); SITE RR; pH 7.45 (7.35-7.45)
[2017-01-04 15:48] LABS: COMMENTS - BLOOD GASES C+A-N/A; DEVICE ROOM AIR; FI02 21 %; TOTAL RESP RATE 26 resp/min
[2017-01-04 18:40] LABS: POINT-OF-CARE METER ID UU14174217
[2017-01-04 19:53] LABS: POINT-OF-CARE METER ID UU14174217
[2017-01-04 21:50] LABS: ANION GAP 13 MEQ/L (2-14); CHLORIDE 106 MEQ/L (99-109); GFR ESTIMATE (CALCULATED) > 59 mL/min/; GLUCOSE 102 mg/dL (70-99); POTASSIUM 3.3 MEQ/L (3.7-5.4); SAMPLE HEMOLYSIS CHECK 0; SAMPLE ICTERIC CHECK 0; SAMPLE LIPEMIA CHECK 0; SODIUM 139 MEQ/L (136-147); UREA NITROGEN (BUN) 18 mg/dL (9-23)
[2017-01-05] VITALS (25 sets, daily range): BP systolic 0–136; BP diastolic 0–83
[2017-01-05 01:08] LABS: POINT-OF-CARE METER ID UU13113731
[2017-01-05 05:47] LABS: POINT-OF-CARE METER ID UU13113731
[2017-01-05 06:49] LABS: EOSINOPHIL (%) 0.4 % (0-5); HEMATOCRIT 23.4 % (36.0-46.0); IMMATURE GRANULOCYTE (%) 4.3 % (0.0-0.7); IMMATURE GRANULOCYTE COUNT 0.4 K/uL; LYMPHOCYTE COUNT 0.9 K/uL (1.0-2.8); MCH 29.7 PG (29.0-34.0); MCHC 37.2 G/DL (30.0-36.0); MCV 79.9 FL (83-99); MONOCYTE (%) 7.7 % (3-12); MONOCYTE COUNT 0.8 K/uL (0-0.8); NEUTROPHIL (%) 78.4 % (45-76); NRBC (%) 0.2 /100 WBC (0-0); PLATELET COUNT 132 K/uL (156-360); RBC DIS.WIDTH-CV 16.6 % (11.8-14.6); RBC DIS.WIDTH-SD 46.9 % (39-53); RED BLOOD COUNT 2.93 M/uL (3.80-5.20)
[2017-01-05 06:53] LABS: WHITE BLOOD COUNT 10.2 K/uL (4.1-10.2)
[2017-01-05 10:42] LABS: ANION GAP 9 MEQ/L (2-14); CHLORIDE 104 MEQ/L (99-109); GFR ESTIMATE (CALCULATED) > 59 mL/min/; GLUCOSE 110 mg/dL (70-99); POTASSIUM 3.2 MEQ/L (3.7-5.4); SAMPLE HEMOLYSIS CHECK 0; SAMPLE ICTERIC CHECK 0; SAMPLE LIPEMIA CHECK 0; SODIUM 140 MEQ/L (136-147); UREA NITROGEN (BUN) 16 mg/dL (9-23)
[2017-01-05 12:59] LABS: POINT-OF-CARE METER ID UU13113803
[2017-01-05 18:28] LABS: POINT-OF-CARE METER ID UU14162636
[2017-01-06] VITALS (21 sets, daily range): BP systolic 0–114; BP diastolic 0–85
[2017-01-06 00:58] LABS: POINT-OF-CARE METER ID UU14174217
[2017-01-06 06:03] LABS: POINT-OF-CARE METER ID UU14162636
[2017-01-06 07:35] LABS: EOSINOPHIL (%) 0.1 % (0-5); IMMATURE GRANULOCYTE (%) 3.9 % (0.0-0.7); IMMATURE GRANULOCYTE COUNT 0.4 K/uL; INSTRUMENT ABS NEUTROPHIL CT 8.4 K/uL; MCHC 35.8 G/DL (30.0-36.0); MCV 80.8 FL (83-99); MEAN PLAT.VOLUME 11.8 uM^3 (9.5-12.4); MONOCYTE (%) 5.2 % (3-12); MONOCYTE COUNT 0.5 K/uL (0-0.8); NEUTROPHIL COUNT 8.4 K/uL (1.8-6.4); NRBC (%) 0.3 /100 WBC (0-0); PLATELET COUNT 99 K/uL (156-360); RBC DIS.WIDTH-CV 16.6 % (11.8-14.6); RBC DIS.WIDTH-SD 47.8 % (39-53); RED BLOOD COUNT 2.97 M/uL (3.80-5.20); WHITE BLOOD COUNT 10.4 K/uL (4.1-10.2)
[2017-01-06 08:06] LABS: ANION GAP 10 MEQ/L (2-14); CHLORIDE 105 MEQ/L (99-109); GFR ESTIMATE (CALCULATED) > 59 mL/min/; MAGNESIUM 1.9 mg/dl (1.3-2.7); POTASSIUM 3.8 MEQ/L (3.7-5.4); SAMPLE HEMOLYSIS CHECK 0; SAMPLE ICTERIC CHECK 0; SAMPLE LIPEMIA CHECK 0; SODIUM 141 MEQ/L (136-147); UREA NITROGEN (BUN) 14 mg/dL (9-23)
[2017-01-06 08:08] LABS: GLUCOSE 82 mg/dL (70-99)
[2017-01-06 12:46] LABS: POINT-OF-CARE METER ID UU13113731
[2017-01-06 18:24] LABS: POINT-OF-CARE METER ID UU13113731
[2017-01-07] VITALS (14 sets, daily range): BP systolic 79–109; BP diastolic 44–68
[2017-01-07 00:54] LABS: POINT-OF-CARE METER ID UU14174217; POINT-OF-CARE USER ID AGYTJR
[2017-01-07 06:02] LABS: POINT-OF-CARE METER ID UU13113803; POINT-OF-CARE USER ID AGYTJR
[2017-01-07 06:05] LABS: EOSINOPHIL (%) 0 % (0-5); HEMATOCRIT 22.3 % (36.0-46.0); IMMATURE GRANULOCYTE (%) 3.4 % (0.0-0.7); IMMATURE GRANULOCYTE COUNT 0.3 K/uL; INSTRUMENT ABS NEUTROPHIL CT 8.1 K/uL; LYMPHOCYTE COUNT 0.9 K/uL (1.0-2.8); MCV 82.9 FL (83-99); MEAN PLAT.VOLUME 11.4 uM^3 (9.5-12.4); MONOCYTE (%) 6.5 % (3-12); MONOCYTE COUNT 0.7 K/uL (0-0.8); NEUTROPHIL (%) 80.9 % (45-76); NEUTROPHIL COUNT 8.1 K/uL (1.8-6.4); PLATELET COUNT 97 K/uL (156-360); RBC DIS.WIDTH-CV 17.1 % (11.8-14.6); RBC DIS.WIDTH-SD 50.8 % (39-53); RED BLOOD COUNT 2.69 M/uL (3.80-5.20)
[2017-01-07 06:35] LABS: ANION GAP 6 MEQ/L (2-14); CHLORIDE 106 MEQ/L (99-109); GFR ESTIMATE (CALCULATED) > 59 mL/min/; GLUCOSE 122 mg/dL (70-99); SAMPLE HEMOLYSIS CHECK 0; SAMPLE ICTERIC CHECK 0; SAMPLE LIPEMIA CHECK 0; SODIUM 140 MEQ/L (136-147); UREA NITROGEN (BUN) 14 mg/dL (9-23)
[2017-01-07 11:34] LABS: POINT-OF-CARE METER ID UU13113803; POINT-OF-CARE USER ID NUTJLF39
[2017-01-07 17:05] LABS: POINT-OF-CARE METER ID UU13113803; POINT-OF-CARE USER ID NUTJLF39
[2017-01-07 20:11] LABS: ANION GAP 3 MEQ/L (2-14); CHLORIDE 107 MEQ/L (99-109); POTASSIUM 4.2 MEQ/L (3.7-5.4); SAMPLE HEMOLYSIS CHECK 0; SAMPLE ICTERIC CHECK 0; SAMPLE LIPEMIA CHECK 0; SODIUM 139 MEQ/L (136-147)
[2017-01-07 20:18] LABS: GFR ESTIMATE (CALCULATED) > 59 mL/min/; GLUCOSE 136 mg/dL (70-99); UREA NITROGEN (BUN) 15 mg/dL (9-23)
[2017-01-08] VITALS (12 sets, daily range): BP systolic 80–103; BP diastolic 45–62
[2017-01-08 01:02] LABS: POINT-OF-CARE METER ID UU13113803
[2017-01-08 05:34] LABS: POINT-OF-CARE METER ID UU13113803
[2017-01-08 06:24] LABS: EOSINOPHIL (%) 0 % (0-5); HEMATOCRIT 21.1 % (36.0-46.0); IMMATURE GRANULOCYTE (%) 3.3 % (0.0-0.7); IMMATURE GRANULOCYTE COUNT 0.3 K/uL; MCH 29.1 PG (29.0-34.0); MCHC 34.6 G/DL (30.0-36.0); MCV 84.1 FL (83-99); MEAN PLAT.VOLUME 12.6 uM^3 (9.5-12.4); MONOCYTE COUNT 0.7 K/uL (0-0.8); NEUTROPHIL (%) 79.9 % (45-76); PLATELET COUNT 91 K/uL (156-360); RBC DIS.WIDTH-CV 17.4 % (11.8-14.6); RBC DIS.WIDTH-SD 52.5 % (39-53); RED BLOOD COUNT 2.51 M/uL (3.80-5.20)
[2017-01-08 06:48] LABS: ANION GAP 6 MEQ/L (2-14); CHLORIDE 109 MEQ/L (99-109); GFR ESTIMATE (CALCULATED) > 59 mL/min/; GLUCOSE 126 mg/dL (70-99); MAGNESIUM 1.8 mg/dl (1.3-2.7); POTASSIUM 4.1 MEQ/L (3.7-5.4); SAMPLE HEMOLYSIS CHECK 0; SAMPLE ICTERIC CHECK 0; SAMPLE LIPEMIA CHECK 0; SODIUM 142 MEQ/L (136-147); UREA NITROGEN (BUN) 15 mg/dL (9-23)
[2017-01-08 12:26] LABS: POINT-OF-CARE METER ID UU14174217
[2017-01-08 17:45] LABS: POINT-OF-CARE METER ID UU14162636
[2017-01-09 01:04] LABS: POINT-OF-CARE METER ID UU13113781; POINT-OF-CARE USER ID ENVKC36
[2017-01-09 06:17] LABS: POINT-OF-CARE METER ID UU13113781; POINT-OF-CARE USER ID ENVKC36
[2017-01-09 08:12] LABS: ANION GAP 5 MEQ/L (2-14); CHLORIDE 107 MEQ/L (99-109); GFR ESTIMATE (CALCULATED) 58 mL/min/; GLUCOSE 131 mg/dL (70-99); POTASSIUM 4.3 MEQ/L (3.7-5.4); SAMPLE HEMOLYSIS CHECK 0; SAMPLE ICTERIC CHECK 0; SAMPLE LIPEMIA CHECK 0; SODIUM 142 MEQ/L (136-147); UREA NITROGEN (BUN) 20 mg/dL (9-23)
[2017-01-09 08:27] LABS: HEMATOCRIT 20.7 % (36.0-46.0); MCH 29.2 PG (29.0-34.0); MCHC 33.8 G/DL (30.0-36.0); MCV 86.3 FL (83-99); RBC DIS.WIDTH-CV 17.7 % (11.8-14.6); RBC DIS.WIDTH-SD 54.7 % (39-53); WHITE BLOOD COUNT 10.7 K/uL (4.1-10.2)
[2017-01-09 08:30] VITALS: BP 99/58
[2017-01-09 08:37] LABS: EOSINOPHIL (%) 0 % (0-5); IMM.PLATELET FRACTION 18.8 (1-7); IMMATURE GRANULOCYTE (%) 3.8 % (0.0-0.7); IMMATURE GRANULOCYTE COUNT 0.4 K/uL; INSTRUMENT ABS NEUTROPHIL CT 7.6 K/uL; LYMPHOCYTE COUNT 1.6 K/uL (1.0-2.8); MEAN PLAT.VOLUME 13.8 uM^3 (9.5-12.4); MONOCYTE (%) 9.9 % (3-12); MONOCYTE COUNT 1.1 K/uL (0-0.8); NEUTROPHIL (%) 71.5 % (45-76); NEUTROPHIL COUNT 7.6 K/uL (1.8-6.4); PLAT.SUFFICIENCY DECREASED
[2017-01-09 09:07] LABS: PLATELET COUNT 51 K/uL (156-360)
[2017-01-09 12:05] VITALS: BP 99/60
[2017-01-09 16:00] VITALS: BP 98/58
== END 2017-01-09 15:51 | DRG 871 ==
LOC: EME 11:51 → 4WEST 15:51 → 4EAST 15:51 → EDOF 15:51 → 4WEST 17:08 → 4EAST 01-08 22:04
PROVIDERS: Emergency Medicine; Hospitalist; Internal Medicine; Internal Medicine Nephrology; Psychiatry & Neurology Neurology; Student in an Organized Health Care Education/Training Program
PROC: 05H633Z Insertion of Infusion Device into Left Subclavian Vein, Percutaneous Approach (ICD-10-PCS; principal; 2016-12-31)
PROC: 30233N1 Transfusion of Nonautologous Red Blood Cells into Peripheral Vein, Percutaneous Approach (ICD-10-PCS; principal; 2016-12-31)
PROC: 8E0ZXY6 Isolation (ICD-10-PCS; 2016-12-31)
DX: A41.9 Sepsis, unspecified organism (principal); R65.21 Severe sepsis with septic shock; J15.6 Pneumonia due to other Gram-negative bacteria; G93.41 Metabolic encephalopathy; F05 Delirium due to known physiological condition; J98.11 Atelectasis; Z68.41 Body mass index [BMI] 40.0-44.9, adult; E87.1 Hypo-osmolality and hyponatremia; J96.12 Chronic respiratory failure with hypercapnia; F33.9 Major depressive disorder, recurrent, unspecified; J90 Pleural effusion, not elsewhere classified; J81.1 Chronic pulmonary edema; K43.0 Incisional hernia with obstruction, without gangrene; I50.9 Heart failure, unspecified; J44.9 Chronic obstructive pulmonary disease, unspecified; N18.9 Chronic kidney disease, unspecified; I12.9 Hypertensive chronic kidney disease with stage 1 through stage 4 chronic kidney disease, or unspecified chronic kidney disease; E78.5 Hyperlipidemia, unspecified; J45.909 Unspecified asthma, uncomplicated; M10.9 Gout, unspecified; Z79.4 Long term (current) use of insulin; Z86.73 Personal history of transient ischemic attack (TIA), and cerebral infarction without residual deficits; Z99.81 Dependence on supplemental oxygen; M48.00 Spinal stenosis, site unspecified; R53.1 Weakness; E11.22 Type 2 diabetes mellitus with diabetic chronic kidney disease; D63.1 Anemia in chronic kidney disease; M81.0 Age-related osteoporosis without current pathological fracture; K76.0 Fatty (change of) liver, not elsewhere classified; K59.8 Other specified functional intestinal disorders; E66.9 Obesity, unspecified; R62.7 Adult failure to thrive; K21.9 Gastro-esophageal reflux disease without esophagitis; E83.42 Hypomagnesemia; Z66 Do not resuscitate; Z51.5 Encounter for palliative care; I51.7 Cardiomegaly; I67.2 Cerebral atherosclerosis; F01.50 Vascular dementia, unspecified severity, without behavioral disturbance, psychotic disturbance, mood disturbance, and anxiety; Z74.01 Bed confinement status; R91.1 Solitary pulmonary nodule; Z09 Encounter for follow-up examination after completed treatment for conditions other than malignant neoplasm
CPT/HCPCS: 31720; 36600; 70450; 70551; 71010; 71250; 74176; 80048; 80048 91; 80053; 80076; 80150 90; 80202; 81003; 82040; 82306; 82533 91; 82550; 82550 91; 82553; 82565; 82570; 82575; 82607; 82728; 82746; 82803; 82945; 82948; 83540; 83605; 83735; 83880; 84100; 84134; 84156; 84157; 84300; 84443; 84484; 85014; 85018; 85025; 85027; 86900; 86901; 86905; 86920; 87040; 87070; 87077; 87086; 87102; 87147; 87181; 87186; 87205; 87449; 87502; 87641; 87801; 89051; 93005; 93306; 94640 76; 94667; 94668; 94799; 95819; 99202; 99281; 99285; C1894; J0278; J0456; J0770; J1100; J1650; J1720; J1815; J1940; J1956; J2185; J2270; J2543; J3370; J3475; J3480; J7030; J7040; J7050; J7070; J7120; P9016; P9045; P9047; S0028

== ENCOUNTER 2017-01-09 16:03 | Inpatient (IN) | payer OTHER ==
[~2017-01-09 16:03] MED LIST changes: +POTASSIUM20 MEQ/11 PO
[2017-01-09 19:41] VITALS: BP 0/0
== END 2017-01-10 23:28 | DRG 871 ==
LOC: 4EAST 16:03
DX: A41.9 Sepsis, unspecified organism (principal); J44.0 Chronic obstructive pulmonary disease with (acute) lower respiratory infection; J18.9 Pneumonia, unspecified organism; K56.7 Ileus, unspecified; R57.9 Shock, unspecified; F03.90 Unspecified dementia, unspecified severity, without behavioral disturbance, psychotic disturbance, mood disturbance, and anxiety; Z51.5 Encounter for palliative care; Z66 Do not resuscitate; I12.9 Hypertensive chronic kidney disease with stage 1 through stage 4 chronic kidney disease, or unspecified chronic kidney disease; E11.22 Type 2 diabetes mellitus with diabetic chronic kidney disease; N18.9 Chronic kidney disease, unspecified
CPT/HCPCS: 94799; J0770; J2270; J7050